=== PATIENT | male | born 1945 | race Caucasian/White ===

== ENCOUNTER 2018-12-12 07:39 | Inpatient (IN) ==
[2018-12-12] MEDS ORDERED: NS 1,000 ML IV ONE (08:08)
[2018-12-12] MEDS ORDERED: DUONEB (A & A) INH ONE (08:08)
[2018-12-12] MEDS ORDERED: SOLU-MEDROL IV ONE (08:08)
--- NOTE | 2018-12-12 08:15 | EKG Report ---
Test Performed on : 12/12/2018 07:53:56 AM Test Reason : dysp Blood Pressure : / mmHG Vent. Rate : 090 BPM Atrial Rate : 090 BPM P-R Int : 172 ms QRS Dur : 100 ms QT Int : 348 ms P-R-T Axes : 056 005 059 degrees QTc Int : 425 ms Normal sinus rhythm. Normal ECG When compared with ECG of 29-MAY-2018 14:25, No significant change was found Unconfirmed Result
--- NOTE | 2018-12-12 08:29 | Diag Imaging Result Doc PS360 ---
EXAM: CHEST-PORTABLE 12/12/2018 HISTORY: cough TECHNIQUE: AP portable at 0819 COMMENT: There is increased interstitial markings throughout the right lung. Compared to 05/27/2018 this has not changed appreciably. The inspiration is slightly less optimal. IMPRESSION: Pulmonary fibrosis primarily on the right. Electronically signed by Omid Gomes 12/12/2018 8:26 AM
[2018-12-12 08:31] LABS: BASO# 0.03 X1000 (0.0-0.2); BASO% 0.5 % (0.0-0.8); EOS# 0.05 X1000 (0.0-0.7); EOS% 0.8 % (0.0-10.0); HEMATOCRIT 41.3 % (42.0-52.0); HEMOGLOBIN 13.9 g/dL (14.0-18.0); LYMPH# 0.71 X1000 (1.2-3.4); LYMPH% 11.7 % (20.5-51.1); MCH 29.4 PG (27-31); MCHC 33.7 g/dL (33-37); MCV 87.3 FL (81-99); MONO# 0.48 X1000 (0.11-0.59); MONO% 7.9 % (1.7-9.3); MPV 9.6 FL (7.4-10.4); NEUT# 4.82 X1000 (1.4-6.5); NEUT% 79.1 % (42.2-75.2); PLT 225 X1000 (130-400); RBC 4.73 XMIL (4.7-6.1); RDW 12.5 % (11.5-14.5); WBC 6.09 X1000 (4.8-10.8)
[2018-12-12 08:42] LABS: CHLORIDE 97 mmol/L (98-107); POTASSIUM 4.1 mmol/L (3.5-5.1); SODIUM 136 mmol/L (136-145); TCO2 28 mmol/L (25-35)
[2018-12-12 08:43] LABS: AGAP 11; ALB/GLOB RATIO 1.5; ALBUMIN 4.4 g/dL (3.5-5.0); ALKALINE PHOSPHATASE 85 U/L (32-122); BUN 17 mg/dL (8-22); CALCIUM 9.1 mg/dL (8.8-10.2); COSMO 279; CREATININE 1.1 mg/dL (0.7-1.2); ESTIMATED GFR > 60; GLUCOSE 204 mg/dL (70-104); GOT 61 U/L (10-34); GPT 24 U/L (10-44); TOTAL BILIRUBIN 0.33 mg/dL (0.20-1.00); TOTAL PROTEIN 7.3 g/dL (6.3-8.3)
[2018-12-12] MEDS ORDERED: ZITHROMAX 500 MG/NS 500 MG/250 ML IVPB IV ONE (10:14)
[2018-12-12] MEDS ORDERED: ROCEPHIN 2 GM in NS 50 ML IV ONE (10:14)
[2018-12-12] MEDS ORDERED: NS 50 ML ONE (10:51)
[2018-12-12] MEDS ORDERED: ZOFRAN IV PRN (11:30)
[2018-12-12] MEDS ORDERED: TYLENOL PO PRN (11:30)
[2018-12-12 13:45] LABS: URINE SOURCE CATH
[2018-12-12 13:52] LABS: BILIRUBIN URINE NEGATIVE (NEGATIVE); BLOOD URINE NEGATIVE (NEGATIVE); COLOR YELLOW; GLUCOSE URINE 200 mg/dL (NEGATIVE); KETONE URINE TRACE mg/dL (NEGATIVE); LEUKOCYTES URINE NEGATIVE (NEGATIVE); NITRITE URINE NEGATIVE (NEGATIVE); PH URINE 5.5; PROTEIN URINE TRACE mg/dL (NEGATIVE); SP GRAVITY URINE 1.009; TURBIDITY URINE CLEAR (CLEAR); UR EPITHELIAL CELLS <10 /HPF (<10); URINE BACTERIA NEGATIVE /HPF; URINE RBC <10 /HPF (<10); URINE WBC <10 /HPF (<10); UROBILINOGEN URINE NORMAL (NORMAL)
[2018-12-12] MEDS: TAMIFLU PO SCH (15:00)
[2018-12-12] MEDS: SOLU-MEDROL IV SCH (15:00)
--- NOTE | 2018-12-12 15:20 | HISTORY AND PHYSICAL ---
CHIEF COMPLAINT: Cough and fever. HISTORY OF PRESENT ILLNESS: This is a 73-year-old gentleman who presented to the emergency room complaining of cough and fever. He was found to have a room air sat of 88%, and with a temperature of 102.9 degrees on arrival. The patient states that Sunday night he started to have generalized body aches and a cough. This is exacerbated prompting his presentation to the emergency room. He does state that he has been exposed to the flu over the last week. His chest x-ray revealed pulmonary fibrosis. Influenza A was positive with TB negative. He was given Solu- Medrol, Rocephin, azithromycin, and a fluid bolus in the emergency room. He is being admitted for further evaluation and treatment. PAST MEDICAL HISTORY: 1. Bronchiectasis. 2. Pulmonary fibrosis. 3. Diabetes mellitus type 2. 4. Hypertension. 5. COPD. PAST SURGICAL HISTORY: Shoulder surgery, bilateral knee arthroscopy, C-spine surgery, L-spine surgery and cholecystectomy. SOCIAL HISTORY: He quit smoking many years ago. He has denies alcohol or illicit drug use. He is . ALLERGIES: Meropenem which caused a rash and hives. HOME MEDICATIONS: A list will be obtained by the nursing staff once verified. Will be restarted as appropriate. REVIEW OF SYSTEMS: Discussed with patient with pertinent positives stated in the HPI. He denied any syncope, any chest pain, palpitations, nausea, vomiting, diarrhea, or constipation, any black or bloody vomitus in stools, hematuria, dysuria, frequency or urgency. PHYSICAL EXAMINATION: GENERAL: This is a 73-year-old gentleman who is sitting up on the stretcher in the emergency room. VITAL SIGNS: Blood pressure is 133/75 with a heart rate of 90, respirations 17, temperature 98.1 degrees with O2 sats ranged 90 to 95 on 2 L nasal cannula. EYES: Pupils equal, round, and react to light. EOMs are intact. Sclerae anicteric. HEENT: Head is normocephalic and atraumatic. Mucous membranes are moist. NECK: Supple with trachea midline. CARDIOVASCULAR: Regular rate and rhythm. He is tachycardic. S1 and S2 appreciated. He does have peripheral pulses palpable. Calves are nontender to palpation bilateral. PULMONARY: He does have some expiratory wheezes throughout. He has rhonchi that partially clear to cough. Chest rises and falls symmetric with respiration. Chest wall is nontender to palpation. GASTROINTESTINAL: Abdomen is soft, nontender, and nondistended. Bowel sounds in all 4 quadrants. GENITOURINARY: He has no CVAT or suprapubic tenderness. NEUROLOGIC: He is alert and oriented. LABORATORY: WBC is 6.0 with hemoglobin 13.9, hematocrit 41.3, and platelets 225,000. Sodium is 136, potassium 4.1, BUN 17, creatinine 1.1 with a glucose of 204. Urinalysis is positive for glucose with less than 10. White blood cells, red blood cells, and negative bacteria. Blood cultures are pending. Influenza B is negative. Influenza A is positive. Chest x-ray revealed pulmonary fibrosis primarily on the right. ASSESSMENT AND PLAN: 1. Influenza A. We will start Tamiflu and treat symptoms. 2. Start Tamiflu. The patient will be placed on isolation precautions. 3. Hypoxemia. We will give supplemental oxygen and monitor vital signs. 4. Diabetes mellitus. He will be placed on pattern blood glucose with sliding scale insulin. 5. Hypertension. We will identify his medicines and continue. 6. History of paroxysmal atrial fibrillation. 7. Fibrosis and emphysema to be placed on DuoNeb's q.4 hours with q.2 hours p.r.n. and steroids to taper. 8. We will obtain a sputum specimen, repeat a CBC and BMP in the morning. 9. Further treatments pending hospital course. Dictated by STEPHANIE Orr for Willian Gay MD cc: STEPHANIE Orr MD
[2018-12-12] MEDS ORDERED: D5 1/2 NS + KCL 20 MEQ 1,000 ML IV SCH (16:15)
--- NOTE | 2018-12-12 17:02 | HISTORY AND PHYSICAL ---
ADDENDUM TO HISTORY AND PHYSICAL: Mr. Cheng came to the emergency department today with his , mainly because of shortness of breath, cough, fever. Upon presentation, he was found to have an oxygen saturation of 88% on room air and a temperature of 102.9 degrees. He was evaluated. PHYSICAL EXAMINATION: His physical exam is reveals a barrel chest. Air entry is bilaterally reduced. There is diffuse end-expiratory wheezing in both lung hernández. There is also prolonged expiratory phase of respiration. His general physical exam looks slightly dry. He has a recent surgery to his lower back. Otherwise, physical exam is unremarkable. IMAGING STUDIES: A chest x-ray shows pulmonary fibrosis primarily on the right. An echocardiogram shows normal sinus rhythm with a rate of about 90. LABORATORY DATA: CBC is unremarkable. Chemistry is also completely normal. Glucose is about 204. The influenza is positive. Sputum culture gram stain is showing gram-positive cocci, gram- negative rods. ASSESSMENT: 1. Acute hypoxemic respiratory failure. 2. Chronic obstructive pulmonary disease /bronchiectasis in exacerbation. 3. Clinical volume depletion. 4. Influenza A. 5. Diabetes mellitus. 1. History of paroxysmal atrial fibrillation. PLAN: 1. The patient has been started on Tamiflu. We will also going to continue with IV antibiotics. We will start him on cefepime to cover for possible Pseudomonas because of the obstructive lung disease. We will also add doxycycline to cover for both atypical and Methicillin resistant staphylococcus aureus. 2. We will start him we will also start him on gentle hydration fluid overnight and re-evaluate his hydration status tomorrow. 3. We will be pending the blood culture and sputum cultures and patient will be on droplet precautions. 4. Please refer to the details of the history and physical dictated by the nurse practitioner in the chart. I have reviewed it and agree with the content. 5. If she is. cc: Willian Gay MD
[2018-12-12] MEDS ORDERED: DUONEB (A & A) INH PRN (17:54)
[2018-12-12] MEDS ORDERED: NS 1,000 ML IV SCH ×2 (17:54→20:18)
[2018-12-12] MEDS: HUMALOG SUBQ SCH ×3 (18:03→21:49)
[2018-12-12] MEDS: DUONEB (A & A) INH SCH ×3 (18:20→23:40)
[2018-12-12] MEDS: DOXYCYCLINE 100 MG in NS 250 ML IV SCH (21:49)
[2018-12-13] MEDS: MAXIPIME 2 GM in NS 100 ML IV SCH ×2 (00:19→15:07)
[2018-12-13] MEDS: TAMIFLU PO SCH ×3 (00:20→21:27)
[2018-12-13] MEDS: SOLU-MEDROL IV SCH ×4 (00:20→23:52)
[2018-12-13] MEDS: DUONEB (A & A) INH SCH ×6 (05:56→23:19)
[2018-12-13] MEDS: HUMALOG SUBQ SCH ×5 (06:10→21:29)
[2018-12-13 07:44] LABS: AGAP 12; BUN 20 mg/dL (8-22); CALCIUM 8.6 mg/dL (8.8-10.2); CHLORIDE 99 mmol/L (98-107); COSMO 281; ESTIMATED GFR > 60; GLUCOSE 280 mg/dL (70-104); POTASSIUM 4.2 mmol/L (3.5-5.1); SODIUM 134 mmol/L (136-145); TCO2 23 mmol/L (25-35)
[2018-12-13 07:45] LABS: HEMATOCRIT 37.9 % (42.0-52.0); HEMOGLOBIN 12.6 g/dL (14.0-18.0); LYMPH# 0.41 X1000 (1.2-3.4); LYMPH% 9.6 % (20.5-51.1); MCH 29.2 PG (27-31); MCHC 33.2 g/dL (33-37); MCV 87.7 FL (81-99); MONO# 0.17 X1000 (0.11-0.59); MPV 9.6 FL (7.4-10.4); NEUT# 3.71 X1000 (1.4-6.5); NEUT% 86.4 % (42.2-75.2); PLT 199 X1000 (130-400); RBC 4.32 XMIL (4.7-6.1); RDW 12.2 % (11.5-14.5); WBC 4.29 X1000 (4.8-10.8)
[2018-12-13 08:40] LABS: BANDS 2 % (0-1); LYMPHS 8 % (21-51); MONO 6 % (1-9); SEGS 84 % (42-75)
[2018-12-13 09:05] LABS: HEMOGLOBIN A1C 6.9 % (4.8-6.0)
[2018-12-13] MEDS: LANTUS INSULIN SUBQ SCH (10:33)
[2018-12-13] MEDS: DOXYCYCLINE 100 MG in NS 250 ML IV SCH ×2 (10:33→21:18)
[2018-12-13] MEDS ORDERED: ROCEPHIN 2 GM in NS 50 ML IV SCH (11:00)
[2018-12-13] MEDS ORDERED: HUMALOG SUBQ SCH (11:00)
[2018-12-13] MEDS ORDERED: OXY IR PO PRN (14:07)
[2018-12-13] MEDS ORDERED: ZANAFLEX PO PRN (14:07)
[2018-12-13] MEDS: ADDERALL XR PO SCH (15:06)
[2018-12-13] MEDS: TOPROL XL PO SCH ×2 (15:06→21:35)
[2018-12-13] MEDS: XANAX PO SCH ×3 (15:06→21:31)
--- NOTE | 2018-12-13 17:01 | PROGRESS NOTE ---
DATE: 12/13/2018 SUBJECTIVE: This morning Mr. Cameron referred to be doing a whole lot better in terms of his breathing, but he has a lot of pain because of chronic pain issues. OBJECTIVELY: Vital Signs: Blood pressure is 136/62, pulse of 81, respirations 19, temperature 98.1. General: Mr. Cameron is a 73-year-old gentleman. He is in bed. No distress. HEENT: Mucosa is pink and moist. Anicteric. Acyanotic. Neck: Supple. Chest: Good air entry bilaterally. A few distant wheezing in both lung hernández. No crackles. Cardiovascular: Regular rate and rhythm. Abdomen: Soft, nontender. Extremities: No pedal edema. Central Nervous System: Patient is awake, alert and oriented. There is no focal neurological deficit. LABORATORY DATA: WBC is 4.29, hemoglobin is 12.6, platelet count of 199,000. Chemistry is also reviewed, is completely unremarkable. Glucose is 280 with an A1c of 6.9. So far blood cultures have not grown anything. ASSESSMENT: 1. Acute hypoxemic respiratory failure, improving. 2. COPD/bronchiectasis in exacerbation. The patient is currently on bronchodilation therapy, steroids and antibiotics. Sputum culture is still pending as well as blood cultures. 3. Clinical volume depletion improved. IV fluids will be discontinue and encourage the patient just to hydrate orally. 4. Influenza A pneumonia. Patient is on Tamiflu. 5. Diabetes mellitus with presenting A1c of 6.9. We will continue with insulin regimen. 6. Chronic pain syndrome. We will start the patient back on his home pain medications. PLAN: So, in general, I think Mr. Cameron is doing a lot better. Hydration status has significantly improved. The patient refers to be feeling okay and better. We are still pending the sputum and blood cultures to be able to narrow down the antibiotic coverage. Hopefully, we can discharge Mr. Cameron tomorrow. cc: Willian Gay MD
[2018-12-13] MEDS: LYRICA PO SCH (21:26)
[2018-12-13] MEDS: OXYCONTIN PO SCH (21:26)
[2018-12-14] MEDS: MAXIPIME 2 GM in NS 100 ML IV SCH (03:50)
[2018-12-14] MEDS: DUONEB (A & A) INH SCH ×3 (04:00→11:14)
[2018-12-14] MEDS: HUMALOG SUBQ SCH ×2 (06:17→12:39)
[2018-12-14] MEDS: SOLU-MEDROL IV SCH (06:18)
[2018-12-14 07:27] LABS: BASO# 0.01 X1000 (0.0-0.2); BASO% 0.1 % (0.0-0.8); HEMATOCRIT 37.8 % (42.0-52.0); HEMOGLOBIN 12.6 g/dL (14.0-18.0); LYMPH# 0.61 X1000 (1.2-3.4); LYMPH% 5.8 % (20.5-51.1); MCH 29.2 PG (27-31); MCHC 33.3 g/dL (33-37); MCV 87.5 FL (81-99); MONO# 0.39 X1000 (0.11-0.59); MONO% 3.7 % (1.7-9.3); MPV 9.5 FL (7.4-10.4); NEUT# 9.43 X1000 (1.4-6.5); NEUT% 90.4 % (42.2-75.2); PLT 232 X1000 (130-400); RBC 4.32 XMIL (4.7-6.1); RDW 12.4 % (11.5-14.5); WBC 10.44 X1000 (4.8-10.8)
[2018-12-14 07:48] LABS: BANDS 1 % (0-1); LYMPHS 5 % (21-51); MONO 4 % (1-9); SEGS 90 % (42-75)
[2018-12-14 07:58] LABS: AGAP 10; ALBUMIN 3.2 g/dL (3.5-5.0); BUN 18 mg/dL (8-22); CALCIUM 8.7 mg/dL (8.8-10.2); CHLORIDE 103 mmol/L (98-107); COSMO 279; CREATININE 0.8 mg/dL (0.7-1.2); ESTIMATED GFR > 60; GLUCOSE 200 mg/dL (70-104); PHOSPHORUS 2.6 mg/dL (2.7-4.5); POTASSIUM 4.5 mmol/L (3.5-5.1); SODIUM 136 mmol/L (136-145); TCO2 23 mmol/L (25-35)
[2018-12-14] MEDS: LYRICA PO SCH (09:00)
[2018-12-14] MEDS: TOPROL XL PO SCH (09:01)
[2018-12-14] MEDS: TAMIFLU PO SCH (09:01)
[2018-12-14] MEDS: ADDERALL XR PO SCH (09:01)
[2018-12-14] MEDS: XANAX PO SCH (09:02)
[2018-12-14] MEDS: OXYCONTIN PO SCH (09:13)
[2018-12-14] MEDS: LANTUS INSULIN SUBQ SCH (09:13)
[2018-12-14 12:00] VITALS: BP 162/80
[2018-12-14] MEDS ORDERED: DOXYCYCLINE PO ONE (13:59)
[2018-12-14] MEDS: DOXYCYCLINE 100 MG in NS 250 ML IV SCH (13:59)
--- NOTE | 2018-12-14 15:35 | DISCHARGE SUMMARY ---
ADMISSION DATE: 12/12/2018 DISCHARGE DATE: 12/14/2018 DISPOSITION: Home. FOLLOW UP: 1. Dr. Raoul Benavides 2. Dr. Francisco Black CONSULTATIONS DURING THIS ADMISSION: None. INVASIVE PROCEDURES DONE DURING THIS ADMISSION: None. IMAGING STUDIES OF SIGNIFICANCE: A chest x-ray did show pulmonary fibrosis primarily on the right. ADMISSION DIAGNOSES: 1. Influenza A. 2. Hypoxemia. 3. Diabetes mellitus. 4. History of paroxysmal atrial fibrillation. DIAGNOSES AT THE TIME OF DISCHARGE: 1. Acute hypoxemic respiratory failure, improved. 2. Chronic obstructive pulmonary disease/bronchiectasis in exacerbation. 3. Pulmonary fibrosis, etiology is unclear. 4. Influenza A pneumonia. 5. Diabetes mellitus with presenting A1C of 6.9. 6. Chronic pain syndrome. 7. Clinical volume depletion, improved. DISCHARGE MEDICATIONS: Metoprolol 50 mg b.i.d. OxyContin 40 mg b.i.d. Pregabalin 100 mg b.i.d. Tizanidine 4 mg p.o. every 4 hours. Dextroamphetamine/amphetamine 10 mg p.o. daily. Oxycodone IR 50 mg p.o. every 4 to 6 hours. Alprazolam 1 mg b.i.d. Prednisone 20 mg daily. Levofloxacin 50 mg p.o. daily. Tamiflu 75 mg b.i.d. Zyvox 600 mg p.o. b.i.d. PRESENTING COMPLAINT: Cough and fever. HISTORY OF PRESENTING COMPLAINT: Mr. Cameron is a 73-year-old gentleman with a longstanding history of pulmonary fibrosis of unclear etiology, bronchiectasis, and some COPD who uses home oxygen, especially at night. He presented to the Emergency Department because of a cough and fever with a temperature of 102.9 on arrival and O2 saturation was found to be 88%. The patient was subsequently admitted for further medical care. HOSPITAL COURSE: Mr. Cameron was admitted to the medical floor. He was initially adequately hydrated and was started on IV antibiotics. Sputum culture and blood cultures were done. A chest x-ray did reveal pulmonary fibrosis mostly on the right side. Because of the fever we thought whatever longstanding lung pathology that he has (fibrosis/bronchiectasis/COPD) could have flared- up or become infected. He was started on broad spectrum IV antibiotics and Respiratory Therapy was consulted. Mr. Cameron improved during the hospital course. He felt a lot better, breathing got under control, and his O2 saturation also significantly improved on just 2 L of oxygen. This morning he feels a lot better. His current blood pressure is 162/80, pulse 85, respirations 18, and temperature 98.1. The patient was saturating 98%. He is going to be evaluated for home oxygen today. While that is done I think Mr. Cameron would be okay to be discharged. All the discharge instructions have been discussed with him and he voiced understanding. Mr. Cameron is also on a lot of pain home medications because of chronic lower back pain that he has had multiple surgeries for. He has been advised to follow up with his pain management to keep titrating his pain medications. Time spent for discharge was 37 minutes. cc: MD Raoul Huang MD James E. Boyle, MD
== END 2018-12-14 15:16 | disposition home or self-care (01) | DRG 190 ==
LOC: ED 07:39 → 3N 12:16 → EDIPHOLD 12:27 → 3N 17:08
PROVIDERS: ATTEND Internal Medicine
CPT/HCPCS: 71010; 71045; 80048; 80053; 80069; 81001; 82306; 82948; 83036; 83605; 84484; 85025; 87040; 87070; 87081; 87205; 87275; 87276; 87430; 87804; 93005; 94640; 94761; 94799; 99285; A9270; J0456; J0692; J0696; J1815; J2930; J7030; J7050; XXXXX

== ENCOUNTER 2019-01-05 13:37 | Inpatient (IN) ==
[2019-01-05] MEDS ORDERED: NARCAN IV ONE (14:13)
--- NOTE | 2019-01-05 14:36 | Diag Imaging Result Doc PS360 ---
EXAM: CHEST-1 VIEW HISTORY: ams TECHNIQUE: Chest single view COMPARISON: 12/12/2018 FINDINGS: The lungs are well expanded. The heart is not enlarged. There are increased interstitial markings throughout the right lung similar to the prior exam. No consolidation. No pleural effusions identified. IMPRESSION: Stable chest. Right lung fibrosis. Electronically signed by Carlos A Fan 01/05/2019 2:34 PM
[2019-01-05 14:53] LABS: BASO# 0.03 X1000 (0.0-0.2); BASO% 0.3 % (0.0-0.8); EOS% 3.6 % (0.0-10.0); HEMATOCRIT 39.8 % (42.0-52.0); HEMOGLOBIN 13.2 g/dL (14.0-18.0); IMM GRAN# 0.03 X1000 (0.0-0.04); IMM GRAN% 0.3 % (0.0-0.5); LYMPH% 9.8 % (20.5-51.1); MCH 29.1 PG (27-31); MCHC 33.2 g/dL (33-37); MCV 87.7 FL (81-99); MONO% 6.2 % (1.7-9.3); MPV 9.1 FL (7.4-10.4); NEUT# 8.98 X1000 (1.4-6.5); NEUT% 79.8 % (42.2-75.2); PLT 279 X1000 (130-400); RBC 4.54 XMIL (4.7-6.1); RDW 12.6 % (11.5-14.5); WBC 11.24 X1000 (4.8-10.8)
--- NOTE | 2019-01-05 15:31 | Diag Imaging Result Doc PS360 ---
EXAM: CT HEAD W/O CONTRAST HISTORY: ams TECHNIQUE: Emergent CT head without contrast COMPARISON: 05/27/2018 FINDINGS: No parenchymal hemorrhage. No epidural or subdural hematoma. No subarachnoid hemorrhage. 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 Mild chronic microvascular ischemic changes. No mass identified on this noncontrasted exam. No hydrocephalus. No sinus opacification. IMPRESSION: No hemorrhage. Stable brain CT. This exam was performed using automated exposure control, adjustment of mA or kV according to patient size, and/or use of iterative reconstruction technique. Electronically signed by Carlos A Fan 01/05/2019 3:29 PM
[2019-01-05 15:37] LABS: ALB/GLOB RATIO 1.6; ALBUMIN 3.6 g/dL (3.5-5.0); CALCIUM 8.9 mg/dL (8.8-10.2); CREATININE 1.4 mg/dL (0.7-1.2); POTASSIUM 4.9 mmol/L (3.5-5.1); TOTAL BILIRUBIN 0.47 mg/dL (0.20-1.00); TOTAL PROTEIN 5.9 g/dL (6.3-8.3)
--- NOTE | 2019-01-05 15:51 | PROVIDER DOCUMENTATION ---
This chart was entered by Modesta Khan Scribe, acting as scribe for Catracho Sorenson MD. HPI-General Adult - General Chief Complaint: Altered Mental Status Stated Complaint: AMS Time Seen by Provider: 01/05/19 13:50 Source: patient, family, EMS Allergies/Adverse Reactions: Patient Allergies Allergy/AdvReac Type Severity Reaction Status Date / Time meropenem [From Merrem] Allergy RASH Verified 12/12/18 08:30 Home Medications: Home Medication List Medication Instructions Recorded Confirmed Last Taken Type Metoprolol Succinate 50 mg PO BID 08/09/17 12/12/18 12/12/18 06:00 History Oxycodone HCl [Oxycontin] 40 mg PO BID 08/09/17 12/12/18 12/12/18 06:00 History Pregabalin [Lyrica] 100 mg PO BID 08/09/17 12/12/18 12/12/18 06:00 History Tizanidine HCl 4 mg PO Q4HR PRN 08/09/17 12/12/18 12/12/18 06:00 History Albuterol 2.5MG/Ipratrop 0.5MG 3 ml INH Q4H PRN #10 neb 05/31/18 12/12/18 12/11/18 Rx [Duoneb (A & A)] Alprazolam 1 mg PO BID 12/12/18 12/12/18 Unknown History Dextroamphetamine/Amphetamine 10 mg PO DAILY 12/12/18 12/12/18 12/09/18 History [Dextroamp-Amphet ER 10 mg Cap] Insulin Lispro [Humalog] 0 unit SQ DIRECTED 12/12/18 12/12/18 Unknown History Oxycodone I.r. [Oxy Ir] 15 mg PO Q4-6H PRN PRN 12/12/18 12/12/18 Unknown History Levofloxacin [Levaquin] 500 mg PO DAILY #7 tab 12/14/18 Unknown Rx Linezolid [Zyvox] 600 mg PO BID #10 tab 12/14/18 Unknown Rx Oseltamivir [Tamiflu] 75 mg PO BID #6 cap 12/14/18 Unknown Rx Prednisone [Deltasone] 20 mg PO DAILY #5 tab 12/14/18 Unknown Rx - History of Present Illness -Gen Adult Nature of Presenting Problems: 73 y/o male presents to ED with AMS onset just this morning. Pt takes (1) 40 mg oxycontin twice daily due to fusion surgery in September. states she thinks he might have taken extra pain medication. Pt is lethargic and responds to sternal rub. Location of Pain/Injury: reports: none Pain Radiation: reports: no radiation Quality of Pain: reports: none Severity: reports: moderate Onset/Duration: reports: this morning Timing: reports: still present Context/Activities at Onset: reports: none Modifying Factors: improves with: nothing Associated Symptoms: reports: other (AMS) Similar Symptoms Previously?: No Recently seen or treated by another doctor?: No Review of Systems - Adult - REVIEW OF SYSTEMS - ADULT Constitutional: reports: other (AMS). denies: chills, fever Eyes: reports: no symptoms reported Ears, Nose, Mouth & Throat: reports: no symptoms reported Cardiovascular: denies: chest pain, palpitations Respiratory: denies: cough, shortness of breath Gastrointestinal: denies: abdominal pain, diarrhea, nausea, vomiting Genitourinary: reports: no symptoms reported Musculoskeletal: denies: back pain, joint pain Integumentary: reports: no symptoms reported Neurological: reports: other (AMS). denies: dizziness/vertigo, seizure Psychiatric: reports: no symptoms reported Endocrine: reports: no symptoms reported Hematologic/Lymphatic: reports: no symptoms reported Allergic/Immunologic: reports: no symptoms reported All Other Systems: Reviewed and Negative Past History - Adult - PAST MEDICAL HISTORY-ADULT Review of Records: reports: Old Records Reviewed, Nursing Assessment Review, Medications Reviewed Major Childhood Illnesses: reports: denies history Cardiovascular: reports: A-Fib, CAD, HTN, hyperlipidemia, [place] Respiratory: reports: COPD Gastrointestinal: reports: denies history, GERD Musculoskeletal: reports: denies history Psychiatric: reports: denies history Endocrine/Immune: reports: denies history, Diabetes - PRIOR SURGERIES/PROCEDURES Surgical/Procedure History: reports: cholecystectomy, orthopedic (extremity) (right and left knee), joint replacement (total knee), back/neck (cervical and lumbar fusion) - PRIOR HOSPITALIZATIONS Prior Hospitalizations: reports: for similar symptoms - IMMUNIZATION STATUS Childhood Immunizations: See Nurse Assessment Flu Vaccine: See Nurse Assessment - FAMILY HISTORY Family History: reviewed, not pertinent - SOCIAL HISTORY Smoking: quit greater than 1 year Substance Use: none/never Alcohol Use Frequency: never Living Situation: family Physical Exam-General - PHYSICAL EXAM-ADULT Initial Vital Signs Reviewed: Yes - CONSTITUTIONAL General Appearance: appears well, no apparent distress, lethargic, slow to respond, other (noncompliant with exam; responds to sternal rub) - EYES Eyes: pink conjunctivae, other (pinpoint, sluggish pupils) - HEAD, EARS, NOSE, MOUTH & THROAT HENMT: normocephalic/atraumatic, normal ENT inspection. negative: moist mucous membranes (dry) - NECK Neck: full range of motion - RESPIRATORY Respiratory: lungs clear, normal breath sounds - CARDIOVASCULAR Cardiovascular: normal peripheral pulses, regular rate, rhythm - GASTROINTESTINAL (ABDOMEN) Abdominal Exam: normal bowel sounds, soft - MUSCULOSKELETAL Back Exam: normal inspection Extremity: normal range of motion - SKIN Integumentary: normal color, warm/dry - NEUROLOGIC Neurologic: grossly normal, other (noncompliant with exam; responds to sternal rub; slow to respons; lethargic) - PSYCHIATRIC Psych/Mental Status: other (noncompliant with exam; responds to sternal rub; slow to respons; lethargic) Progress - PLAN OF CARE/RESULTS Progress/Plan/Lab Results: Vital Signs - 8 hr 01/05/19 13:43 Temperature 99.2 F Pulse Rate 97 H Respiratory Rate 20 Blood Pressure 111/66 O2 Sat by Pulse Oximetry 97 Orders Category Date Time Status CT HEAD W/O CONTRAST [CT] Stat Exams 01/05/19 14:05 Ordered cxr [CHEST-1 VIEW] [RAD] Stat Exams 01/05/19 14:06 Ordered ABG [RESP] Routine Lab 01/05/19 14:05 Ordered CBC WITH ELECTRONIC DIFF [HEME] Stat Lab 01/05/19 14:05 Uncollected COMPREHENSIVE METABOLIC PANEL [CHEM] Stat Lab 01/05/19 14:05 Uncollected TROPONIN T Stat Lab 01/05/19 14:07 Ordered URINALYSIS [URINALYSIS] Stat Lab 01/05/19 14:05 Uncollected Naloxone [Narcan] Med 01/05/19 14:13 Discontinued 0.4 mg IV NOW ONE EKG [EKG] Stat Ther 01/05/19 14:05 Ordered Result Diagrams: 01/05/19 14:41 01/05/19 14:41 - EKG 1 Time of EKG reading by physician:: 13:47 EKG Read and Signed by:: Catracho Sorenson EKG Interpretation (*Must complete 3 of following elements*): Normal Rate: 93 Rhythm: NSR [place]: normal QRS: normal IN Interval: normal ST Wave: normal - XRAY 1 XRAY Study: Chest Impression: Abnormal ( FINDINGS: The lungs are well expanded. The heart is not enlarged. There are increased interstitial markings throughout the right lung similar to the prior exam. No consolidation. No pleural effusions identified. IMPRESSION: Stable chest. Right lung fibrosis. Electronically signed by Carlos A Fan 01/05/2019 2:34 PM) - CT/MRI 1 CT Study: Head Impression: Normal (FINDINGS: No parenchymal hemorrhage. No epidural or subdural hematoma. No subarachnoid hemorrhage. 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 Mild chronic microvascular ischemic changes. No mass identified on this noncontrasted exam. No hydrocephalus. No sinus opacification. IMPRESSION: No hemorrhage. Stable brain CT. This exam was performed using automated exposure control, adjustment of mA or kV according to patient size, and/or use of iterative reconstruction technique. Electronically signed by Carlos A Fan 01/05/2019 3:29 PM) - CONSULTS/PCP/HOSPITALIST Notification #1 *Consult/PCP/Hospitalist*: STEPHANIE Avery for hospitalist Time Discussed: 15:44 Reason/Comments: AMS Consult Disposition: Admit Departure - Departure Date of Disposition Decision: 01/05/19 Time of Disposition Decision: 15:44 DIAGNOSIS: Adverse reaction to drug Qualifiers: Encounter type: initial encounter Qualified Code(s): T50.905A - Adverse effect of unspecified drugs, medicaments and biological substances, initial encounter Altered mental state Qualifiers: Altered mental status type: unspecified Qualified Code(s): R41.82 - Altered mental status, unspecified Disposition: ADMITTED INPATIENT 09 Certified Medical Emergency: Emergent Condition: Stable Referrals and Follow-Ups: Raoul Benavides [Primary Care Provider] - - Critical Care Note This patient required my direct & personal management of CC.: No Attestation - Physician/ LUCITA Attestation Patient care was provided by Advanced Practice Provider:: No The physician spent face to face time with patient:: Yes Advanced Practice Provider documentation review:: Supervising physician onsite and consulted in the evaluation and care of this patient. The physician did have a face to face encounter with the patient. This chart was documented by the indicated scribe, (Modesta Khan, Sand[place]) and accurately reflects the services I performed and decisions made by me, Catracho Sorenson MD, as attested by the provider's signature.
[2019-01-05 16:45] LABS: BLOOD TYPE ARTERIAL; SAMPLE BLOOD
[2019-01-05 16:46] LABS: ALLEN TEST YES; BE 1.5 mmoll (-3.0-3.0); METHB 1.3 % (0.0-1.5); MODALITY CANNULA; O2HB 95.1 % (95.0-99.0); PCO2(98.6) 49 mmHg (35-45); PO2(98.6) 124 mmHg (60-100); SAO2 99.6 % (95.0-100.0); THB 12.6 g/dL (11.5-17.4); pH(98.6) 7.36 (7.35-7.45)
--- NOTE | 2019-01-05 17:24 | HISTORY AND PHYSICAL ---
PRIMARY CARE PHYSICIAN: Dr. Raoul Benavides. CHIEF COMPLAINT: Altered mental status. HISTORY OF PRESENT ILLNESS: This is a 73-year-old male with a past medical history of diabetes mellitus type 2 and pulmonary fibrosis, who has been recently admitted to the hospital at the beginning of the month for the flu, who was brought to the emergency department because of altered mental status that started this morning. Apparently was trying to wake him up but she was not able to. The patient takes at home oxycodone extended release form 40 mg twice daily and on top of that, he takes oxycodone IR 15 mg 4-6 hours p.r.n. Apparently he has refilled this short-acting oxycodone and he was given 120 pills but after 4 days there were just 66 left , so during this 4 days he may probably have taken 54 tablets which probably means like 13 per day. That is most likely reason why he is altered. Of course, at this point, patient is not able to provide any information. In the ER, he was given Narcan and he woke up immediately but he was very agitated and we were called for admission. PAST MEDICAL HISTORY: 1. Diabetes mellitus type 2. 2. Hypertension. 3. COPD. 4. Pulmonary fibrosis. 5. Bronchiectasis. PAST SURGICAL HISTORY: 1. Shoulder surgery. 2. Bilateral knee arthroscopy. 3. C-spine surgery. 4. Lumbar spine surgery. 5. Cholecystectomy. SOCIAL HISTORY: Patient lives with . He quit smoking many years ago. As per , he does not drink any alcohol or use illicit drugs. ALLERGIES: Patient is allergic to meropenem which causes a rash and hives. REVIEW OF SYSTEMS: Not possible to obtain because the patient is obtunded. PHYSICAL EXAMINATION: VITAL SIGNS: Temperature 99.2 degrees, heart rate 97, respiratory rate 20, blood pressure 111/66, O2 saturation 95% on 2 L of oxygen by nasal cannula. GENERAL: This is a chronically ill-appearing and disheveled, 73-year-old male lying in bed, in no acute distress. HEENT: Head is normocephalic, atraumatic. Mucous membranes dry. NECK: No JVD noted. No carotid bruits. No lymphadenopathy. No thyromegaly. CARDIOVASCULAR: S1, S2 heard. No murmurs, gallops, or rubs. Regular rate and rhythm. RESPIRATORY: Decreased breath sounds globally. Some rhonchi in both pulmonary bases. Patient is not using any accessory muscles or having work of breathing. ABDOMEN: Soft. A little bit distended. Apparently nontender to palpation. Bowel sounds present. No organomegaly. EXTREMITIES: No clubbing, cyanosis, or edema. Peripheral pulses present in both legs. NEUROLOGICAL: The patient is definitely obtunded. Does not follow commands. Does not respond to verbal stimuli. LABORATORY DATA: White cell count is. 11.24, hemoglobin 13.2, hematocrit 29.8, platelets 279,000. BMP: Sodium 135, creatinine 1.4, glucose 136. ASSESSMENT AND PLAN: 1. Toxic encephalopathy secondary to opiate overdose. Unfortunately, patient was brought to the emergency department because he, I do not know if accidentally or on purpose, took a lot of pills. Unfortunately, the regimen that he is receiving, in this case oxycodone 40 mg twice daily plus 15 mg of oxycodone IR q.4-6 hours p.r.n. plus alprazolam 1 mg twice daily, the patient is at high risk of respiratory arrest. We have to explain that to the . At this point, considering that he has been on such a huge amount of pain medications, I do not think it is a good idea to do a Narcan drip. Considering that he is breathing fine, of course, still obtunded, I think what we are going to do is to provide IV fluids and see how this patient does but no need for Narcan because that can trigger opiate withdrawal considering that he is more than 20 years taking oxycodone. In any case, we will send this patient to the ICU and we will monitor this patient closely. 2. Diabetes mellitus type 2. We will continue with sliding scale insulin and Accu-Cheks q.4 hours. 3. Hypertension. Blood pressure is under control. We will continue with the same management. 4. History of paroxysmal atrial fibrillation. Aware. 5. Disposition. At this point, we will monitor this patient closely in the intensive care unit. cc: Alvaro Dent MD [facility]ITALMelissa
[2019-01-05] MEDS ORDERED: ZOFRAN IV PRN (18:53)
[2019-01-05] MEDS ORDERED: DUONEB (A & A) INH PRN (18:53)
[2019-01-05] MEDS ORDERED: SODIUM CHLORIDE 0.9% INJ SCH (18:53)
[2019-01-05] MEDS: NS 1,000 ML IV SCH (19:27)
[2019-01-05 19:36] LABS: URINE SOURCE CLEAN CATCH
[2019-01-05 19:58] LABS: BILIRUBIN URINE NEGATIVE (NEGATIVE); BLOOD URINE SMALL (NEGATIVE); COLOR YELLOW; GLUCOSE URINE NEGATIVE (NEGATIVE); KETONE URINE NEGATIVE (NEGATIVE); LEUKOCYTES URINE NEGATIVE (NEGATIVE); NITRITE URINE NEGATIVE (NEGATIVE); PROTEIN URINE NEGATIVE (NEGATIVE); SP GRAVITY URINE 1.003; TURBIDITY URINE CLEAR (CLEAR); UROBILINOGEN URINE NORMAL (NORMAL)
[2019-01-05 20:00] LABS: UR EPITHELIAL CELLS <10 /HPF (<10); URINE BACTERIA NEGATIVE /HPF; URINE RBC <10 /HPF (<10); URINE WBC <10 /HPF (<10)
[2019-01-05] MEDS ORDERED: PEPCID IV SCH (21:00)
[2019-01-05] MEDS ORDERED: HUMALOG SUBQ SCH (21:00)
[2019-01-05] MEDS ORDERED: LOVENOX SUBQ SCH (21:00)
[2019-01-06] MEDS ORDERED: ULTRAM PO PRN (00:37)
[2019-01-06] MEDS: NS 1,000 ML IV SCH (03:00)
[2019-01-06 03:16] VITALS: BP 152/94
--- NOTE | 2019-01-06 07:24 | EKG Report ---
Test Performed on : 01/05/2019 1:47:44 PM Test Reason : ams Blood Pressure : / mmHG Vent. Rate : 093 BPM Atrial Rate : 093 BPM P-R Int : 176 ms QRS Dur : 094 ms QT Int : 350 ms P-R-T Axes : 042 027 037 degrees QTc Int : 435 ms Normal sinus rhythm. Normal ECG When compared with ECG of 12-DEC-2018 07:53, (Unconfirmed) No significant change was found Unconfirmed Result
--- NOTE | 2019-01-06 16:52 | DISCHARGE SUMMARY ---
ADMISSION DATE: 01/05/2019 DISCHARGE DATE: 01/06/2019 Note patient was admitted to the hospital for the following diagnosis. 1. Toxic encephalopathy secondary to either accidental or intentional opiate overdose. 2. Opiate dependence. 3. Diabetes mellitus type 2. 4. Hypertension. 5. Paroxysmal atrial fibrillation. HOSPITAL COURSE: I admit this patient yesterday because the following conditions mentioned above. Unfortunately this patient wake up in the middle of the night of course requesting pain medications. It is important to remark that he approximately took in 4 days like 56 tablets of oxycodone IR 15 mg. He was requesting more and more pain medication on the night and because the reason why he was admitted to hospital was a drug overdose, we were not giving him medication that he was requesting so he decided to leave AMA even before we recommend him to stay and he said that he will go to [facility]. I think this patient will be back either to [facility] or to any other hospital because he is unfortunately abusing those medications. Is very risky to keep this patient on 40 mg of oxycodone extended release q.12 hours and on top of that 15 q.4 hours p.r.n. He has received 120 tablets for p.r.n. for a month which I think is a lot and that is the reason why he ended up being in the hospital altered. Unfortunately as we mentioned before, he left the hospital AMA. cc: Alvaro Dent MD MTDMelissa
== END 2019-01-06 05:00 | disposition left against medical advice (07) | DRG 917 ==
LOC: SUPCPDRO → ED 13:37 → ICU 17:50
PROVIDERS: ATTEND Internal Medicine
CPT/HCPCS: 70450; 71010; 71045; 80053; 81001; 82805; 82948; 84484; 85025; 93005; 94640; 96374; 99285; A9270; J1650; J2310; J7030; S0028; XXXXX